=== PATIENT | female | born 1945 | race Native Hawaiian/Other Pacific Islander ===

== ENCOUNTER 2018-06-08 23:09 | Observation (INO) | payer MEDICARE, MEDICAID ==
[2018-06-08 23:17] VITALS: BMI 31.5
[2018-06-08 23:44] LABS: BASO # 0.04 K/mm3 (0.0-2.0); BASO % 0.6 % (0.0-3.0); EOS # 0.3 (0.0-0.7); EOS % 4.9 % (1.5-5.0); HEMOGLOBIN 14.8 g/dL (12.0-16.0); LYMPH # 2.9 (1.2-3.4); LYMPH % 44.8 % (22.0-35.0); MEAN CELL VOLUME 84.7 fl (80.0-105.0); MEAN PLATELET VOLUME 9.9 fl (7.0-11.0); MONO # 0.4 (0.1-0.6); RBC 5.29 10^6/uL (3.5-6.1); RED CELL DISTRIBUTION WIDTH 12.7 % (11.5-14.5); WHITE BLOOD COUNT 6.5 10^3/uL (4.5-11.0)
[2018-06-08 23:49] LABS: ALB/GLOB RATIO 1.2 (1.1-1.8); ALBUMIN 4.8 g/dL (3.0-4.8); ALT/SGPT 26 U/L (7-56); AST/SGOT 39 U/L (14-36); BLOOD UREA NITROGEN 15 mg/dL (7-21); CALCIUM 10.2 mg/dL (8.4-10.5); GFR NON-AFRICAN AMERICAN > 60
[2018-06-09 00:01] LABS: TROPONIN I < 0.01 ng/mL
[2018-06-09 00:12] LABS: PH,URINE 6.5 (4.7-8.0); URINE BILIRUBIN NEGATIVE (NEGATIVE); URINE BLOOD TRACE-INTACT (NEGATIVE); URINE GLUCOSE (UA) NEGATIVE (NEGATIVE); URINE LEUKOCYTE ESTERASE NEGATIVE Leu/uL (NEGATIVE); URINE PROTEIN 30 mg/dL (<30 mg/dL); URINE UROBILINOGEN 0.2 E.U./dL (<1 E.U./dL)
[2018-06-09 00:13] LABS: INR 0.98; PARTIAL THROMBOPLASTIN TIME 33.2 Seconds (26.9-38.3); PROTHROMBIN TIME 10.9 SECONDS (9.4-12.5)
[2018-06-09] MEDS ORDERED: Iohexol 350 MG/100 ML VIAL ONE (00:13)
[2018-06-09 00:14] LABS: URINE APPEARANCE CLEAR (CLEAR); URINE COLOR STRAW (YELLOW)
[2018-06-09 00:50] LABS: URINE BACTERIA FEW /hpf; URINE EPITHELIAL CELLS 0 - 2 /hpf (0-5); URINE RBC 0 - 2 /hpf (0-2)
--- NOTE | 2018-06-09 03:34 | ED PDOC ---
Arrival/HPI - General Chief Complaint: Chest Pain Time Seen by Provider: 06/08/18 23:21 Historian: Patient - History of Present Illness Narrative History of Present Illness (Text): 06/09/18 03:35 72 y/o female with PMH of HTN, thyroid disease presents to the ED c/o chest pain that began at 10am this morning. Pain is sharp and radiates through to her back. Pt has not taken her BP medication in 2 months, c/o HTN today. Took 2 baby ASA SHOVEL OILER. Denies fever, chills, SOB, numbness, weakness, paresthesias, headache, dizziness, abdominal pain, nausea, vomiting, cough, or any other associated symptoms. Past Medical History - Provider Review Nursing Documentation Reviewed: Yes - Infectious Disease Hx of Infectious Diseases: None - Tetanus Immunization Tetanus Immunization: Unknown - Cardiac Hx Hypertension: Yes Hx Pacemaker: No - Pulmonary Hx Respiratory Disorders: Yes Other/Comment: URI - Neurological Hx Neurological Disorder: No - HEENT Hx HEENT Disorder: No - Renal Hx Renal Disorder: No - Endocrine/Metabolic Hx Hypothyroidism: Yes (Patient denies, ER said pt. has history) - Hematological/Oncological Hx Blood Disorders: No - Integumentary Hx Dermatological Disorder: No - Musculoskeletal/Rheumatological Hx Musculoskeletal Disorders: No Hx Falls: No - Gastrointestinal Hx Gastrointestinal Disorders: No - Genitourinary/Gynecological Hx Genitourinary Disorders: No - Psychiatric Hx Psychophysiologic Disorder: No Hx Emotional Abuse: No Hx Physical Abuse: No Hx Substance Use: No - Anesthesia Hx Anesthesia Reactions: No (DTR HAD DIFFICULTY WAKING) Hx Malignant Hyperthermia: No - Suicidal Assessment Feels Threatened In Home Enviroment: No Family/Social History - Physician Review Nursing Documentation Reviewed: Yes Family/Social History: No Known Family HX Smoking Status: Never Smoked Hx Alcohol Use: No Hx Substance Use: No Allergies/Home Meds Allergies/Adverse Reactions: Allergies No Known Allergies Allergy (Verified 06/08/18 23:17) Review of Systems - Physician Review All systems were reviewed & negative as marked: Yes - Review of Systems Constitutional: Normal. absent: Fatigue, Fevers Eyes: Normal. absent: Vision Changes ENT: Normal. absent: Hearing Changes, Sore Throat, Sinus Congestion Respiratory: Normal. absent: SOB, Cough Cardiovascular: Chest Pain Gastrointestinal: Normal. absent: Abdominal Pain, Nausea, Vomiting Genitourinary Female: Normal. absent: Dysuria, Frequency Musculoskeletal: Back Pain. absent: Arthralgias, Neck Pain Skin: Normal. absent: Rash Neurological: Normal. absent: Headache, Dizziness Endocrine: Normal Hemo/Lymphatic: Normal Psychiatric: Normal Physical Exam Vital Signs Reviewed: Yes Vital Signs Temp Pulse Resp BP Pulse Ox 06/09/18 01:33 78 17 139/80 97 06/08/18 23:58 72 15 147/92 H 95 06/08/18 23:17 98.7 F 78 20 168/98 H 97 Temperature: Afebrile Blood Pressure: Hypertensive Pulse: Regular Respiratory Rate: Normal Appearance: Positive for: Well-Appearing, Non-Toxic, Comfortable Pain Distress: None Mental Status: Positive for: Alert and Oriented X 3 - Systems Exam Head: Present: Atraumatic, Normocephalic Pupils: Present: PERRL Extroacular Muscles: Present: EOMI Conjunctiva: Present: Normal Mouth: Present: Moist Mucous Membranes Neck: Present: Normal Range of Motion. No: Meningeal Signs Respiratory/Chest: Present: Clear to Auscultation, Good Air Exchange. No: Respiratory Distress, Accessory Muscle Use Cardiovascular: Present: Regular Rate and Rhythm, Normal S1, S2, Peripheal Pulse s Present. No: Murmurs Abdomen: Present: Normal Bowel Sounds. No: Tenderness, Distention, Peritoneal Signs, Rebound, Guarding Back: Present: Normal Inspection Upper Extremity: Present: Normal Inspection, Normal ROM, NORMAL PULSES, Neurovascularly Intact, Capillary Refill < 2s. No: Cyanosis, Edema, Temperature Abnormalties Lower Extremity: Present: Normal Inspection, NORMAL PULSES, Normal ROM, N eurovascularly Intact, Capillary Refill < 2 s. No: Edema, Temperature Abnormalties Neurological: Present: GCS=15, CN II-XII Intact, Speech Normal, Motor Func Grossly Intact, Normal Sensory Function, Gait Normal Skin: Present: Warm, Dry, Normal Color. No: Rashes Psychiatric: Present: Alert, Oriented x 3, Normal Insight, Normal Concentration, Normal Affect, Normal Mood Medical Decision Making ED Course and Treatment: Initial Plan: * CBC, CMP * Coags * Mg,Phos * CXR * EKG * CTA, dissection protocol Bloodwork reviewed, unremarkable No STEMI on EKG, troponin negative CXR negative CTA negative, shows enlarged thyroid [address] Yung who accepted pt for inpatient observation on telemetry floor with diagnosis of chest pain. Asks for cardiac enzymes x3 and consult to Dr. Zambrano. Pt made aware of change in disposition, resting in stretcher comfor tably with stable vital signs at this time - Lab Interpretations Lab Results: PT 10.9 SECONDS (9.4-12.5) 06/08/18 23:30 INR 0.98 06/08/18 23:30 APTT 33.2 Seconds (26.9-38.3) 06/08/18 23:30 Troponin I < 0.01 ng/mL 06/08/18 23:30 Total Bilirubin 0.5 mg/dL (0.2-1.3) 06/08/18 23:30 AST 39 U/L (14-36) H 06/08/18 23:30 ALT 26 U/L (7-56) 06/08/18 23:30 Alkaline Phosphatase 71 U/L (38-126) 06/08/18 23:30 Total Protein 8.7 g/dL (5.8-8.3) H 06/08/18 23:30 Albumin 4.8 g/dL (3.0-4.8) 06/08/18 23:30 Globulin 3.9 gm/dL 06/08/18 23:30 Albumin/Globulin Ratio 1.2 (1.1-1.8) 06/08/18 23:30 Urine Color Straw (YELLOW) 06/08/18 23:59 Urine Appearance Clear (CLEAR) 06/08/18 23:59 Urine pH 6.5 (4.7-8.0) 06/08/18 23:59 Ur Specific [place] 1.010 (1.005-1.035) 06/08/18 23:59 Urine Protein 30 mg/dL (<30 mg/dL) H 06/08/18 23:59 Urine Glucose (UA) Negative mg/dL (NEGATIVE) 06/08/18 23:59 Urine Ketones Negative mg/dL (NEGATIVE) 06/08/18 23:59 Urine Blood Trace-intact (NEGATIVE) H 06/08/18 23:59 Urine Nitrate Negative (NEGATIVE) 06/08/18 23:59 Urine Bilirubin Negative (NEGATIVE) 06/08/18 23:59 Urine Urobilinogen 0.2 E.U./dL (<1 E.U./dL) 06/08/18 23:59 Ur Leukocyte Esterase Negative Krishan/uL (NEGATIVE) 06/08/18 23:59 Urine RBC 0 - 2 /hpf (0-2) 06/08/18 23:59 Urine WBC None /hpf (0-6) 06/08/18 23:59 Ur Epithelial Cells 0 - 2 /hpf (0-5) 06/08/18 23:59 Urine Bacteria Few /hpf (NONE) 06/08/18 23:59 06/08/18 23:30 06/08/18 23:30 Lab Results 06/08/18 23:59: Urine Color Straw, Urine Appearance Clear, Urine pH 6.5, Ur Specific [place] 1.010, Urine Protein 30 H, Urine Glucose (UA) Negative, Urine Ketones Negative, Urine Blood Trace-intact H, Urine Nitrate Negative, Urine Bilirubin Negative, Urine Urobilinogen 0.2, Ur Leukocyte Esterase Negative, Urine RBC 0 - 2, Urine WBC None, Ur Epithelial Cells 0 - 2, Urine Bacteria Few 06/08/18 23:30: Sodium 138, Potassium 4.3, Chloride 102, Carbon Dioxide 28, Anion Gap 13, BUN 15, Creatinine 0.6 L, Est GFR ( Amer) > 60, Est GFR (Non-Af Amer) > 60, Random Glucose 97, Calcium 10.2, Magnesium 2.2, Total Bilirubin 0.5, AST 39 H, ALT 26, Alkaline Phosphatase 71, Lactate Dehydrogenase 648, Total Creatine Kinase 179, Troponin I < 0.01, Total Protein 8.7 H, Albumin 4.8, Globulin 3.9, Albumin/Globulin Ratio 1.2 06/08/18 23:30: PT 10.9, INR 0.98, APTT 33.2 06/08/18 23:30: WBC 6.5, RBC 5.29, Hgb 14.8, Hct 44.8, MCV 84.7, MCH 28.0, MCHC 33.0, RDW 12.7, Plt Count 183, MPV 9.9, Neut % (Auto) 43.7 L, Lymph % (Auto) 44.8 H, [place] % (Auto) 6.0, Eos % (Auto) 4.9, Baso % (Auto) 0.6, Lymph # (Auto) 2.9, N[place] # (Auto) 0.4, Eos # (Auto) 0.3, Baso # (Auto) 0.04, Absolute Neuts (auto) 2.82 I have reviewed the lab results: Yes - RAD Interpretation Narrative RAD Interpretations (Text): 06/09/18 03:33 CTA Dissection Protocol: FINDINGS: Heterogeneous thyroid enlargement and nodularity. Retrosternal extension of the tracheal deviation to the left lateral side. Associated 15% narrowing of the tracheal diameter. No critical airway narrowing. Normal enhancement of the main pulmonary artery and right and left pulmonary arteries. Normal enhancement of the bilateral peripheral pulmonary arteries. There is no demonstrated pulmonary embolism. Calcified atheromatous plaques of the thoracic aorta and visualized great vessels. There is no demonstrated aortic dissection. Normal heart and pericardium. Normal mediastinum. Normal hilar regions. Normal visualized trachea and bronchi. The lungs are well expanded. Normal pulmonary parenchyma. Normal pleura. Normal chest wall structures. Normal osseous structures. Normal visualized upper abdomen. IMPRESSION: No demonstrated pulmonary embolism or arterial dissection. Heterogeneous thyroid enlargement and nodularity. Multinodular thyroid goiter and/or primary neoplastic pathology of the thyroid. Tissue sampling under ultrasound guidance is suggested on elective basis. Retrosternal extension of the tracheal deviation to the left lateral side. Associated 15% narrowing of the tracheal diameter. No critical airway narrowing. CTA OF THE ABDOMEN AND PELVIS WITH CONTRAST. CLINICAL HISTORY: Abdominal pain. TECHNIQUE: Multiple axial and coronal CT images were obtained through the abdomen and pelvis after administration of intravenous contrast material. COMMENTS: Calcified atheromatous plaques of the abdominal aorta and iliac arteries without dissection. 4.2 cm left renal simple cyst. Uncomplicated colonic diverticulosis. The liver is of uniform attenuation without mass or defect. There is no intra or extrahepatic biliary ductal dilatation. The spleen is normal. The gallbladder is within normal limits. The pancreas is of normal contour and attenuation characteristics. There is no evidence of adrenal mass. Both kidneys demonstrate prompt and equal nephrograms. The kidneys are normal in size, shape and configuration. There is no evidence of renal or ureteral mass. No renal or ureteral calculi are identified. There is no hydroureter or hydronephrosis. No evidence for appendicitis. There is no bowel wall thickening. No evidence for small or large bowel obstruction. There is no evidence of abdominal ascites or lymphadenopathy. There is no evidence of intrinsic or extrinsic bladder mass. There is no pelvic ascites or lymphadenopathy. Images of the lung bases show no evidence of pleural or parenchymal mass. There are no pleural effusions. The bony structures are free of lytic or blastic lesio ns. IMPRESSION: Calcified atheromatous plaques of the abdominal aorta and iliac arteries without dissection. 4.2 cm left renal simple cyst. Uncomplicated colonic diverticulosis. No evidence of acute abdominal or pelvic pathology. Electronically signed on Jun 09, 2018 1:08:16 AM EDT by: Sheridan Almeida M.D., Certified by ABR, MSK, Neuroradiology Radiology Orders: 06/08/18 23:23 CHEST PORTABLE [RAD] Stat 06/08/18 23:37 ANGIOGRAPHY DISECTION PROTOCOL [CT] Stat [place] Operator: Radiologist - EKG Interpretation EKG Interpretation (Text): Rate 73; NSR; Normal Intervals; No STEMI, nonspecific ST/T wave changes Interpreted by ED Physician: Yes Type: 12 lead EKG - Medication Orders Current Medication Orders: Discontinued Medications Acetaminophen (Tylenol 325mg Tab) 650 mg PO STAT STA Stop: 06/09/18 00:13 Last Admin: 06/09/18 00:16 Dose: 650 mg Aspirin (Aspirin Chewable) 81 mg PO STAT STA Stop: 06/09/18 01:43 Last Admin: 06/09/18 01:55 Dose: 81 mg Disposition/Present on Arrival - Present on Arrival Any Indicators Present on Arrival: No History of DVT/PE: No History of Uncontrolled Diabetes: No Urinary Catheter: No History of Decub. Ulcer: No History Surgical Site Infection Following: None - Disposition Have Diagnosis and Disposition been Completed?: Yes Diagnosis: Chest pain, Enlarged thyroid Disposition: HOSPITALIZED Disposition Time: 02:00 Condition: STABLE
[2018-06-09 08:00] LABS: TROPONIN I < 0.01 ng/mL
--- NOTE | 2018-06-09 08:28 | CP.PCM.CON ---
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 Took 2 aspirin prior to coming to ER. Chest pain muskuloskeletal in nature. She has not taken her antihypertensive medication for the past 2 months. Unable to refill, she has to see her PMD (Dr. Yung). History of hypertension, hypercholesterolemia, pneumonia and hypothyroidism. Seen and examined by me and Dr. Kerr Review of Systems - Review of Systems All systems: reviewed and no additional remarkable complaints except Review of Systems: as per HPI Past Patient History - Infectious Disease Hx of Infectious Diseases: None - Tetanus Immunizations Tetanus Immunization: Unknown - Past Social History Smoking Status: Never Smoked - CARDIAC Hx Cardiac Disorders: Yes Hx Hypercholesterolemia: Yes Hx Hypertension: Yes - PULMONARY Hx Respiratory Disorders: Yes Hx Pneumonia: Yes - NEUROLOGICAL Hx Neurological Disorder: No - HEENT Hx HEENT Problems: No - RENAL Hx Chronic Kidney Disease: No - ENDOCRINE/METABOLIC Hx Endocrine Disorders: No - HEMATOLOGICAL/ONCOLOGICAL Hx Blood Disorders: No - INTEGUMENTARY Hx Dermatological Problems: No - MUSCULOSKELETAL/RHEUMATOLOGICAL Hx Musculoskeletal Disorders: No Hx Falls: No - GASTROINTESTINAL Hx Gastrointestinal Disorders: No - GENITOURINARY/GYNECOLOGICAL Hx Genitourinary Disorders: No - PSYCHIATRIC Hx Psychophysiologic Disorder: No - SURGICAL HISTORY Hx Surgeries: No - ANESTHESIA Hx Anesthesia Reactions: No (DTR HAD DIFFICULTY WAKING) Hx Malignant Hyperthermia: No Meds Allergies/Adverse Reactions: Allergies Allergy/AdvReac Type Severity Reaction Status Date / Time No Known Allergies Allergy Verified 06/08/18 23:17 - Medications Medications: Current Medications Ibuprofen (Motrin Tab) 800 mg PO TID ELIZABETH Physical Exam - Constitutional Appears: Non-toxic, No Acute Distress - Head Exam Head Exam: NORMAL INSPECTION, NORMOCEPHALIC - Eye Exam Eye Exam: Normal appearance Pupil Exam: NORMAL ACCOMODATION - ENT Exam ENT Exam: Mucous Membranes Moist, Normal Exam - Respiratory Exam Respiratory Exam: Decreased Breath Sounds, Clear to Auscultation Bilateral - Cardiovascular Exam Cardiovascular Exam: REGULAR RHYTHM, +S1, +S2 Additional comments: left chest tender to touch with ice pack denies chest pain - GI/Abdominal Exam GI & Abdominal Exam: Normal Bowel Sounds, Soft - Extremities Exam Extremities exam: Positive for: full ROM, normal capillary refill - Neurological Exam Neurological exam: Alert, Oriented x3 - Psychiatric Exam Psychiatric exam: Normal Affect, Normal Mood - Skin Skin Exam: Dry, Normal Color Results - Vital Signs Recent Vital Signs: Last Vital Signs Temp 98 F 06/09/18 06:00 Pulse 64 06/09/18 06:00 Resp 20 06/09/18 06:00 BP 137/73 06/09/18 06:00 Pulse Ox 98 06/09/18 06:00 - Labs Result Diagrams: 06/08/18 23:30 06/08/18 23:30 Labs: Laboratory Results - last 24 hr 06/08/18 06/08/18 06/08/18 23:30 23:30 23:30 WBC 6.5 RBC 5.29 Hgb 14.8 Hct 44.8 MCV 84.7 MCH 28.0 MCHC 33.0 RDW 12.7 Plt Count 183 MPV 9.9 Neut % (Auto) 43.7 L Lymph % (Auto) 44.8 H [place] % (Auto) 6.0 Eos % (Auto) 4.9 Baso % (Auto) 0.6 Lymph # (Auto) 2.9 [place] # (Auto) 0.4 Eos # (Auto) 0.3 Baso # (Auto) 0.04 Absolute Neuts (auto) 2.82 PT 10.9 INR 0.98 APTT 33.2 Sodium 138 Potassium 4.3 Chloride 102 Carbon Dioxide 28 Anion Gap 13 BUN 15 Creatinine 0.6 L Est GFR ( Amer) > 60 Est GFR (Non-Af Amer) > 60 Random Glucose 97 Calcium 10.2 Magnesium 2.2 Total Bilirubin 0.5 AST 39 H ALT 26 Alkaline Phosphatase 71 Lactate Dehydrogenase 648 Total Creatine Kinase 179 Troponin I < 0.01 Total Protein 8.7 H Albumin 4.8 Globulin 3.9 Albumin/Globulin Ratio 1.2 Urine Color Urine Appearance Urine pH Ur Specific [place] Urine Protein Urine Glucose (UA) Urine Ketones Urine Blood Urine Nitrate Urine Bilirubin Urine Urobilinogen Ur Leukocyte Esterase Urine RBC Urine WBC Ur Epithelial Cells Urine Bacteria 06/08/18 06/09/18 23:59 07:00 WBC RBC Hgb Hct MCV MCH MCHC RDW Plt Count MPV Neut % (Auto) Lymph % (Auto) [place] % (Auto) Eos % (Auto) Baso % (Auto) Lymph # (Auto) [place] # (Auto) Eos # (Auto) Baso # (Auto) Absolute Neuts (auto) PT INR APTT Sodium Potassium Chloride Carbon Dioxide Anion Gap BUN Creatinine Est GFR ( Amer) Est GFR (Non-Af Amer) Random Glucose Calcium Magnesium Total Bilirubin AST ALT Alkaline Phosphatase Lactate Dehydrogenase 579 Total Creatine Kinase 137 Troponin I < 0.01 Total Protein Albumin Globulin Albumin/Globulin Ratio Urine Color Straw Urine Appearance Clear Urine pH 6.5 Ur Specific [place] 1.010 Urine Protein 30 H Urine Glucose (UA) Negative Urine Ketones Negative Urine Blood Trace-intact H Urine Nitrate Negative Urine Bilirubin Negative Urine Urobilinogen 0.2 Ur Leukocyte Esterase Negative Urine RBC 0 - 2 Urine WBC None Ur Epithelial Cells 0 - 2 Urine Bacteria Few Assessment & Plan - Assessment and Plan (Free Text) Assessment: A 72 year old obese female, [place] who came in to the ER due to left chest pain radiating to shoulder and 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 She took two Aspirin prior to coming to ER. Left chest tender to touch. Chest pain muskuloskeletal in nature. She has not taken her antihypertensive medication for the past 2 months.In ER BP 168/98. Unable to refill medications. She has to see her PMD (Dr. Yung). History of hypertension, hypercholesterolemia, pneumonia and hypothyroidism. Troponin normal (0.01x2).EKG showed normal sinus rhythm. CT of chest showed Calcified atheromatous plaques of the abdominal aorta and iliac arteries without dissection. 4.2 cm left renal simple cyst. Uncomplicated colonic diverticulosis. Uncontrolled hypertension.Will order Echo to evaluate LV function. Motrin for muskuloskeletal pain. Will start low dose betablocker. [place] [facility] [place] 05/07/[place]-LVEF 55%, trace AR, mild MR/PVR, moderate TR, RVSP 42 mmHg Stress test done on 05/07/2015 showed normal , no evidence of ischemia,LVEF 64% Plan: Denies chest pain Muskuloskeletal pain, will give Motrin Echo today to evaluate LV function Heart rate controlled Blood pressure controlled Will restart home medications, Lisinopril 10 mg daily, ASA 81 mg daily. Will start low dose betablocker TSH,HghA1C, Lipid profile Continue current treatment Continue current medications Will follow up Further recommendation during hospital course Plan and treatment discussed with Dr. Kerr Thank you Dr. Yung for the opportunity of taking care of Emily Vaughn - Date & Time Date: 06/09/18 Time: 06:10
[2018-06-09 11:53] LABS: TROPONIN I < 0.01 ng/mL
--- NOTE | 2018-06-09 12:00 | CT ---
PROCEDURE: CT Angiography Chest, Abdomen and Pelvis with and without intravenous contrast HISTORY: chest pain, back pain, HTN COMPARISON: None. TECHNIQUE: Contiguous axial images of the chest, abdomen and pelvis were obtained in the phase of aortic enhancement. A noncontrast enhanced CT of the chest was also obtained to evaluate for possible intramural thrombus. Coronal and sagittal reformats were generated. IV dose administered: 100 mL Omnipaque 350 Radiation dose: Total exam DLP = 1355.87 mGy-cm. This CT exam was performed using one or more of the following dose reduction techniques: Automated exposure control, adjustment of the mA and/or kV according to patient size, and/or use of iterative reconstruction technique. FINDINGS: CT ANGIOGRAPHY OF THE CHEST WITH & WITHOUT CONTRAST: AORTA (CHEST AND ABDOMEN): The thoracic and abdominal aorta are unremarkable, without aneurysm, dissection or rupture. No intramural thrombus identified in the thoracic aorta on the non-contrast ct of the chest. The celiac axis, superior mesenteric artery, inferior mesenteric artery and the renal arteries are widely patent. The pelvic arteries are unremarkable. LUNGS: Clear. No nodule, mass or consolidation. MEDIASTINUM: Unremarkable. Normal caliber aorta and pulmonary arterial trunk. No aortic dissection. Normal size heart. LYMPH NODES: Unremarkable. PLEURA: Unremarkable. No pneumothorax. No pleural fluid. BONES: Unremarkable. OTHER FINDINGS: None. CT ANGIOGRAPHY OF THE ABDOMEN AND PELVIS WITH CONTRAST: Allowing for angiographic phase, LIVER: Normal in size. No gross lesion or ductal dilatation. GALLBLADDER AND BILE DUCTS: No calcified gallstones. PANCREAS: Normal in size with homogeneous enhancement. No gross lesion or ductal dilatation. SPLEEN: Normal in size and appearance. ADRENALS: Unremarkable. No mass. KIDNEYS AND URETERS: Normal in size with homogeneous enhancement. No hydronephrosis. No solid mass. There is a 5.1 x 4.8 cm exophytic simple cyst in the lower pole. VASCULATURE: No aortic aneurysm. There are aortic atherosclerotic calcification and mural plaques present. STOMACH AND BOWEL: The small bowel loops are normal in caliber. There is colonic diverticulosis without CT evidence for acute diverticulitis. APPENDIX: Normal appendix. PERITONEUM: No free fluid. No free air. LYMPH NODES: No enlarged lymph nodes. BLADDER: Well distended and normal in appearance. REPRODUCTIVE: The uterus is normal in size. There is a 1.9 x 1.3 cm benign cyst in the left lateral vaginal wall. BONES: No acute fracture. Multilevel degenerative changes. OTHER FINDINGS: There is an enlarged multinodular thyroid gland with retrosternal extension. IMPRESSION: 1. No CTA evidence for aortic aneurysm or aortic dissection. 2. No acute findings in the chest, abdomen or pelvis. 3. Large exophytic cystic in the lower pole of the left kidney. 4. Colonic diverticulosis without CT evidence for acute diverticulitis. 5. Enlarged multinodular thyroid gland with retrosternal extension. Dedicated thyroid ultrasound is recommended for further evaluation. A preliminary report was provided by [employer].
--- NOTE | 2018-06-09 13:15 | RAD ---
Date of service: 06/09/2018 HISTORY: chest pain COMPARISON: 05/07/2016. FINDINGS: LUNGS: The lungs are well inflated and clear. PLEURA: No pleural effusions or pneumothorax. CARDIOVASCULAR: There is moderate cardiomegaly. No aortic atherosclerotic calcifications present. OSSEOUS STRUCTURES: Within normal limits for the patient's age. VISUALIZED UPPER ABDOMEN: Normal. OTHER FINDINGS: None. IMPRESSION: No active pulmonary disease.
[2018-06-09 17:49] LABS: TROPONIN I < 0.01 ng/mL
--- NOTE | 2018-06-09 23:57 | CARD ---
APPROVED REPORT Date of service: 06/08/2018 EKG Measurement Heart [id number] <Conclusion> Normal sinus rhythm Normal ECG
[2018-06-10 00:08] VITALS: RESP 20
[2018-06-10 00:22] LABS: IRON 66 ug/dL (45-180)
[2018-06-10 00:32] LABS: % IRON SATURATION 21 % (20-55); TOTAL IRON BINDING CAPACITY 322 ug/dL (265-497)
--- NOTE | 2018-06-10 02:22 | HP ---
DATE OF EXAM: 06/09/2018 CHIEF COMPLAINT: Chest pain. HISTORY OF PRESENT ILLNESS: Ms. Emily Vaughn is a 72-year-old female with past medical history of hypertension, thyroid disease, came to emergency department complaining of chest pain that began yesterday. Pain is sharp radiating through to her back. The patient has not taken her blood pressure medications for two months, complaining of hypertension and took two baby aspirin. Denies fevers or chills. No hematuria or hematochezia. No paraesthesia. No abdominal pain. No nausea, vomiting, or diarrhea. No fever. No chills. PAST MEDICAL HISTORY: Hypertension, history of upper respiratory tract infection, and history of hypothyroidism. FAMILY HISTORY: Father and mother, noncontributory. HABITS: Never smoked. No drugs. No ethanol. ALLERGIES: THE PATIENT IS NOT ALLERGIC WITH ANY MEDICATIONS. HOME MEDICATIONS: Multivitamins; should be on blood pressure medicine, but not taking. REVIEW OF SYSTEMS: The patient was seen and examined at the bedside in the telemetry, looking comfortable. No fever. No chills. No hematuria. No hematochezia. No headache. No dizziness. No shortness of breath. No sweating, nausea, vomiting, or diarrhea. PHYSICAL EXAMINATION: VITAL SIGNS: Temperature 98.6, blood pressure 113/59, and respiratory rate 19. HEENT: Head; normocephalic and atraumatic. Eyes; PERRLA. Extraocular muscles are intact. Conjunctivae clear. Nose patent. Mucous membranes moist. NECK: Supple. No carotid bruits. No JVD or thyromegaly. CHEST: Bilaterally symmetrical. HEART: S1 and S2 positive. LUNGS: Clear to auscultation. ABDOMEN: Soft. Bowel sounds present. No organomegaly. EXTREMITIES: No edema. No cyanosis. NEUROLOGIC: The patient is awake and alert. Moving all four extremities. No focal deficits. LABORATORY DATA: White blood cells 6.5, hemoglobin 14.8, hematocrit 44.8, and platelets 183. Sodium 138, potassium 4.3, BUN noted , creatinine 0.6, and glucose 97. AST 39. Troponin x4 is negative. ASSESSMENT AND PLAN: Ms. Emily Vaughn is a 72-year-old lady with abnormal liver function test who came with chest pain. Troponin is negative. Urine has protein, hematuria. CT angiogram done. Chest x-rays done in emergency room. Cardiology consult called with Dr. Kerr. According to him, chest pain is musculoskeletal secondary to trauma to the chest. The patient is taking nonsteroidal antiinflammatory drugs. History of hypertension, noncompliant with medications, history of hypercholesterolemia, history of pneumonia, and history of hypothyroidism. Troponin x4 is negative. EKG shows sinus rhythm. CT of the chest shows calcified atheromatous plaques in the abdominal aorta and iliac arteries without dissection, 4.2 left renal cyst, uncomplicated chronic diverticulosis, uncontrolled hypertension, currently thinking about echo for evaluation of left ventricular function, started low-dose beta-keanu. Echo done actually shows left ventricular ejection fraction 55%. Stress test done on 05/07/2015, at this moment, the patient denied chest pain. According to Cardiology, it looks like musculoskeletal, gave Motrin. Echo to evaluate left ventricular function, heart rate controlled, blood pressure is getting under control, started lisinopril, aspirin, and urged to be compliant. We will do fasting lipid profile, hemoglobin A1c, and TSH and we will plan according to that. Ginny Yung MD [facility]
[2018-06-10 06:49] VITALS: BP 134/70; PULSE 54; TEMP 97.7; O2SAT 95
[2018-06-10 07:36] LABS: HEMOGLOBIN 13.4 g/dL (12.0-16.0); MEAN CELL VOLUME 85.4 fl (80.0-105.0); MEAN CORPUSCULAR HEMOGLOBIN 26.8 pg (25.0-35.0); MEAN CORPUSCULAR HGB CONC 31.4 g/dl (31.0-37.0); MEAN PLATELET VOLUME 10.3 fl (7.0-11.0); RED CELL DISTRIBUTION WIDTH 12.9 % (11.5-14.5); WHITE BLOOD COUNT 5.4 10^3/uL (4.5-11.0)
[2018-06-10 07:59] LABS: ALB/GLOB RATIO 1.2 (1.1-1.8); ALT/SGPT 18 U/L (7-56); AST/SGOT 29 U/L (14-36); BLOOD UREA NITROGEN 23 mg/dL (7-21); CALCIUM 9.5 mg/dL (8.4-10.5); GFR NON-AFRICAN AMERICAN > 60; HDL CHOLESTEROL 44 mg/dL (29-60)
[2018-06-10 08:00] LABS: LDL CHOLESTEROL 126 mg/dL (0-129)
--- NOTE | 2018-06-10 08:13 | CP.PCM.PN ---
Subjective - Date & Time of Evaluation Date of Evaluation: 06/10/18 Time of Evaluation: 06:35 - Subjective Subjective: Lying in bed, awake, alert, no distress, denies chest pain Reason for consultation and follow up: Cardiac evaluation of chest pain,un controlled hypertension, history of hypertension, hypercholesterolemia, pneumonia and hypothyroidism. Seen and examined by me and Dr. Kerr Objective - Vital Signs/Intake and Output Vital Signs (last 24 hours): Temp Pulse Resp BP Pulse Ox 97.7 F 54 L 20 134/70 95 06/10/18 06:00 06/10/18 06:00 06/10/18 06:00 06/10/18 06:00 06/10/18 06:00 Intake and Output: 06/10/18 06/10/18 06:59 18:59 Intake Total 200 Output Total 0 Balance 200 - Medications Medications: Current Medications Aspirin (Ecotrin) 81 mg PO DAILY [facility] Last Admin: 06/09/18 09:49 Dose: 81 mg Famotidine (Pepcid) 40 mg PO HS [facility] Last Admin: 06/09/18 23:00 Dose: 40 mg Hydralazine HCl (Apresoline) 10 mg IVP Q6 PRN PRN Reason: hypertension SBP above 160 Ibuprofen (Motrin Tab) 800 mg PO TID [facility] Last Admin: 06/09/18 18:16 Dose: 800 mg Lisinopril (Zestril) 10 mg PO DAILY [facility] Last Admin: 06/09/18 09:49 Dose: 10 mg Metoprolol Tartrate (Lopressor) 25 mg PO BRKDIN [facility] Last Admin: 06/09/18 18:15 Dose: 25 mg - Labs Labs: 06/10/18 06:35 06/10/18 06:35 PT 10.9 SECONDS (9.4-12.5) 06/08/18 23:30 INR 0.98 06/08/18 23:30 APTT 33.2 Seconds (26.9-38.3) 06/08/18 23:30 - Constitutional Appears: Non-toxic, No Acute Distress - Head Exam Head Exam: NORMAL INSPECTION, NORMOCEPHALIC - Eye Exam Eye Exam: Normal appearance Pupil Exam: NORMAL ACCOMODATION - ENT Exam ENT Exam: Mucous Membranes Moist, Normal Exam - Respiratory Exam Respiratory Exam: Decreased Breath Sounds, Clear to Ausculation Bilateral, NORMAL BREATHING PATTERN - Cardiovascular Exam Cardiovascular Exam: Bradycardia, +S1, +S2 - GI/Abdominal Exam GI & Abdominal Exam: Soft, Normal Bowel Sounds - Extremities Exam Extremities Exam: Full ROM, Normal Capillary Refill - Neurological Exam Neurological Exam: Alert, Awake, Oriented x3 - Psychiatric Exam Psychiatric exam: Normal Affect, Normal Mood - Skin Skin Exam: Dry, Normal Color, Warm Assessment and Plan - Assessment and Plan (Free Text) Assessment: A 72 year old obese female, [place] who came in to the ER due to left chest pain radiating to shoulder and back that started damper maker yesterday however she claimed that she was trying to reach in the cupboard and a cup fell on her left side of chest few days ago. She took two Aspirin prior to coming to ER. Le ft chest tender to touch. Chest pain muskuloskeletal in nature. She has not taken her antihypertensive medication for the past 2 months.In ER BP 168/98. Unable to refill medications. She has to see her PMD (Dr. Yung). History of hypertension, hypercholesterolemia, pneumonia and hypothyroidism. Troponin normal (0.01x2).EKG showed normal sinus rhythm. CT of chest showed Calcified atheromatous plaques of the abdominal aorta and iliac arteries without dissection. 4.2 cm left renal simple cyst. Uncomplicated colonic diverticulosis. Uncontrolled hypertension. Motrin given for muskuloskeletal pain. Echo done pending result. For out patient stress test. Discontinue telemetry. Discharge planning. Plan: Denies chest pain, no distress Echo pending result, will follow up Heart rate controlled Controlled blood pressure Discontinue telemetry On Lisinopril 10 mg daily, ASA 81 mg daily.Lopressor 25 mg BID Continue current treatment Continue current medications Instructed on medication compliance and follow up with doctors Discharge planning Stress test as out patient May discharge from cardiac standpoint Will follow up Plan and treatment discussed with Dr. Kerr
--- NOTE | 2018-06-10 09:39 | CARD ---
APPROVED REPORT Date of service: 06/09/2018 EXAM: Two-dimensional and M-mode echocardiogram with Doppler and color Doppler. INDICATION Chest Pain 2D DIMENSIONS Left Atrium (2D)3.7 (1.6-4.0cm)IVSd1.2 (0.7-1.1cm) LVDd4.5 (3.9-5.9cm)PWd1.2 (0.7-1.1cm) LVDs3.3 (2.5-4.0cm)FS (%) 28.0 % LVEF (%)54.2 (>50%) M-Mode DIMENSIONS Aortic Root2.80 (2.2-3.7cm)Aortic Cusp Exc.1.60 (1.5-2.0cm) Aortic Valve AoV Peak Mkoogtyo293.0cm/[place] Peak GR.7mmHg Mitral Valve MV E Vghbwqeo26.0cm/sMV A Izpxqakp40.8cm/sE/A ratio0.8 TDI Lateral E' Peak V6.63cm/sE/Lateral E'11.5E/Medial E'0.0 Pulmonary Valve PV Peak Srzvyjzg16.8cm/sPV Peak Grad.1mmHg Tricuspid Valve TR Peak Datkahgo142se/sRAP [id number] Peak Gr.29mmHg [id number] LEFT VENTRICLE The left ventricle is normal size. There is borderline to mild concentric left ventricular hypertrophy. The left ventricular function is normal.EF-55-60% There is normal LV segmental wall motion. Transmitral Doppler flow pattern is Grade III-reversible restrictive diastolic dysfunction. No left ventricle thrombus noted on this study. There is no ventricular septal defect visualized. There is no left ventricular aneurysm. There is no mass noted in the left ventricle. RIGHT VENTRICLE The right ventricle is normal size. There is normal right ventricular wall thickness. The right ventricular systolic function is normal. ATRIA The left atrium size is normal. The right atrium size is normal. The interatrial septum is intact with no evidence for an atrial septal defect. AORTIC VALVE The aortic valve is thickened but opens well. There is trace aortic regurgitation. There is no aortic valvular stenosis. There is no aortic valvular vegetation. MITRAL VALVE The mitral valve is thickened but opens well. Mitral regurgitation is trace to mild. There is no mitral valve stenosis. There is no evidence of mitral valve prolapse. TRICUSPID VALVE The tricuspid valve leaflets are thickened , but open well. There is mild tricuspid regurgitation.RVSP-39 mmof Hg. There is no tricuspid valve stenosis. There is no tricuspid valve prolapse or vegetation. PULMONIC VALVE The pulmonary valve is normal in structure. There is no pulmonic valvular regurgitation. There is no pulmonic valvular stenosis. GREAT VESSELS The aortic root is normal in size. The ascending aorta is normal in size. The pulmonary artery is normal. The IVC is normal in size and collapses >50% with inspiration. PERICARDIAL EFFUSION There is no pleural effusion. There is no pericardial effusion. <Conclusion> Normal Chamber Size. EF-55-60%. There is trace aortic regurgitation. Mitral regurgitation is trace to mild. There is mild tricuspid regurgitation.RVSP-39 mmof Hg. The IVC is normal in size and collapses >50% with inspiration. There is no pericardial effusion.
[2018-06-10 12:52] LABS: FOLATE 6.1 ng/mL
== END 2018-06-10 18:36 | disposition home or self-care (01) ==
LOC: ED 23:09 → ERH 06-09 02:19 → 2RNO 06-09 03:51
PROVIDERS: ADMIT Internal Medicine; ATTEND Internal Medicine
DX: R07.89 Other chest pain (principal); I10 Essential (primary) hypertension; E03.9 Hypothyroidism, unspecified; E66.9 Obesity, unspecified; E78.00 Pure hypercholesterolemia, unspecified; Z91.14 Patient's other noncompliance with medication regimen; Z87.01 Personal history of pneumonia (recurrent); K57.30 Diverticulosis of large intestine without perforation or abscess without bleeding; N28.1 Cyst of kidney, acquired
CPT/HCPCS: 36415; 71045; 71275; 74175; 80053; 80061; 81001; 81003; 82550; 82607; 82746; 83036; 83540; 83550; 83615; 83735; 84100; 84443; 84484; 85025; 85027; 85610; 85730; 93005; 93306; 99285; G0378; Q9967

== ENCOUNTER 2018-06-21 09:22 | Outpatient (CLI) | payer MEDICARE, MEDICAID | END 2018-06-21 09:23 | disposition home or self-care (01) | LOC: RAD 09:22 ==

== ENCOUNTER → 2018-06-27 | Outpatient (CLI) | payer MEDICARE, MEDICAID | LOC: CARDIO 06:36 ==